=== PATIENT | male | born 1980 | race African-American/Black ===

== ENCOUNTER 2017-01-31 21:22 | Emergency (ER) | payer OTHER ==
[~2017-01-31 21:22] MED LIST: ACYCLOVIR PO; DOXYCYCLINE150 MG PO; ERYTHROMYCIN O3.5 GM OD; FLEXERIL10 MG PO; IBUPROFEN800 MG PO; LORTAB 5/500 TA1 TA1 PO; MOBIC PO; ORUDIS75 M1 PO; PHENERGAN25 M1 PO; PREDNISONE10 MG PO; ULTRACET TABLET1 TAB PO; VOLTAREN50 MG PO; VOLTAREN75 MG PO; ZYRTEC PO
== END 2017-02-01 00:10 | disposition home or self-care (01) ==
LOC: CED 21:22 → CFTX 21:22
DX: M54.5 Low back pain (principal)
CPT/HCPCS: 99282

== ENCOUNTER 2017-02-19 15:00 | Emergency (ER) | payer OTHER | END 2017-02-19 17:09 | disposition home or self-care (01) | LOC: CFTX 15:00 → CED 15:00 → CFTX 16:52 | DX: S33.5XXA Sprain of ligaments of lumbar spine, initial encounter (principal); F17.200 Nicotine dependence, unspecified, uncomplicated; X50.0XXA Overexertion from strenuous movement or load, initial encounter | CPT/HCPCS: 96372; 99283; J1885 ==